=== PATIENT | female | born 1995 | race African-American/Black ===

== ENCOUNTER 2019-12-21 20:53 | Emergency (ER) | payer MEDICAID ==
[~2019-12-21] VITALS: Ht 154.9 cm; Wt 52.2 kg
[2019-12-21 21:02] VITALS: BP 117/70
[2019-12-22] MEDS ORDERED: LORazepam 0.5 MG TAB PO ONE
[2019-12-22] MEDS ORDERED: KETOROLAC TROMETH 60MG/2ML VIAL IM ONE
== END 2019-12-22 00:40 | disposition home or self-care (01) ==
LOC: ER 20:55
DX: G89.29 Other chronic pain (principal); M54.5 Low back pain; F41.9 Anxiety disorder, unspecified

== ENCOUNTER 2020-01-06 18:57 | Emergency (ER) | payer MEDICAID ==
[~2020-01-06] VITALS: Ht 152.4 cm; Wt 49.9 kg
[2020-01-06 19:56] VITALS: BP 107/71
== END 2020-01-06 20:09 | disposition left against medical advice (07) ==
LOC: ER 19:02
DX: M54.9 Dorsalgia, unspecified (principal); Z53.21 Procedure and treatment not carried out due to patient leaving prior to being seen by health care provider